=== PATIENT | male | born 1940 | race Caucasian/White ===

== ENCOUNTER 2017-07-15 14:14 | Inpatient (IN) | payer MEDICARE ==
[2017-07-15 15:17] VITALS: BP 117/77
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
--- NOTE | 2017-07-18 00:45 | History & Physical ---
ADMIT DATE: 07/17/2017 REASON FOR ADMISSION: Psychiatric disorder. HISTORY OF PRESENT ILLNESS: A 76-year-old male admitted to the [facility] Unit for underlying psychiatric illness by Dr. Rivera. Dr. Rivera requested medical H and P on this patient. The patient denies any medical complaints. PAST MEDICAL HISTORY: None. PAST SURGICAL HISTORY: None reported. SOCIAL HISTORY: No reported alcohol, tobacco or street drug use. CURRENT MEDICATIONS: Zoloft. REVIEW OF SYSTEMS: No reported fever. No chills. No nausea. No vomiting. No diarrhea. No abdominal pain. No chest pain. No dizziness. No palpitations or other complaints. PHYSICAL EXAMINATION: VITAL SIGNS: Temperature 97.5, pulse 80, respirations 18, blood pressure 147/85. HEART: S1, S2 normal. LUNGS: Clear to auscultation. ABDOMEN: Soft, nontender. NEUROLOGIC: Awake, but confused. Grossly nonfocal. EXTREMITIES: ____. AVAILABLE LABORATORY DATA: ____. ASSESSMENT: 1. Elevated blood pressure. 2. ____. Monitor blood pressure, labs in a.m., Psych evaluation and management per psychiatrist. Thank you, Dr. Quinn, for allowing me to participate in the care of this patient. [facility]# [id number]
[2017-07-18 09:02] LABS: % BASOPHILS 0.2 % (0.0-2.0); % EOSINOPHILS 4.8 % (0.0-5.0); % LYMPHOCYTES 18.5 % (20.0-50.0); % MONOCYTES 9.7 % (2.0-10.0); % NEUTROPHILS 66.8 % (40.0-80.0); EOSINOPHILE ABSOLUTE 0.3 Th/cmm (0.1-0.4); HEMATOCRIT 42.4 % (41.0-60); LYMPHOCYTE ABSOLUTE 1.3 Th/cmm (1.5-3.0); MEAN CELL VOLUME 87.1 fl (80-99); MEAN CORPUSCULAR HEMOGLOBIN 28.8 pg (27.0-31.0); MEAN CORPUSCULAR HGB CONC 33.1 pg (28.0-36.0); MEAN PLATELET VOLUME 6.8 fl; MONOCYTE ABSOLUTE 0.7 Th/cmm (0.3-1.0); NEUTROPHILE ABSOLUTE 4.9 Th/cmm (1.8-8.0); PLATELET COUNT 198 Th/cmm (150-400); RED BLOOD COUNT 4.86 Mil/cmm (3.80-5.80); WHITE BLOOD COUNT 7.2 Th/cmm (4.8-10.8)
[2017-07-18 09:13] LABS: ANION GAP 11.6 (7.0-16.0); BUN - UREA NITROGEN 28 mg/dL (7-25); CALCIUM SERUM 9.1 mg/dL (8.6-10.3); CARBON DIOXIDE 22.4 mEq/L (21.0-31.0); CHLORIDE 106 mEq/L (98-107); CREATININE - SERUM 0.8 mg/dL (0.7-1.3); GLUCOSE 115 mg/dL (70-105); SODIUM SERUM 136 mEq/L (136-145)
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
== END 2017-07-18 15:53 | disposition left against medical advice (07) | DRG 884 ==
LOC: GERO 14:14
PROVIDERS: ADMIT Psychiatry & Neurology Psychiatry; ATTEND Psychiatry & Neurology Psychiatry
DX: F03.91 Unspecified dementia, unspecified severity, with behavioral disturbance (principal); F29 Unspecified psychosis not due to a substance or known physiological condition; I10 Essential (primary) hypertension; F32.9 Major depressive disorder, single episode, unspecified; F41.9 Anxiety disorder, unspecified; Z53.21 Procedure and treatment not carried out due to patient leaving prior to being seen by health care provider; Z88.8 Allergy status to other drugs, medicaments and biological substances
CPT/HCPCS: 36415-UA; 80048-TC; 85025-TC; Z7610